=== PATIENT | female | born 1990 | race Caucasian/White ===

== ENCOUNTER 2020-11-22 14:26 | Outpatient (CLI) | payer OTHER ==
[~2020-11-22 14:26] MED LIST: FEROSUL325 MG PO
[2020-12-12] MEDS ORDERED: IBUPROFEN800 MG PO (17:43)
[2020-12-12] MEDS ORDERED: TYLENOL 500 MG500 MG PO (17:43)
[2020-12-12] MEDS ORDERED: BUPRENORPHIN-N1 EACH SL (17:43)
[2020-12-12] MEDS ORDERED: DOCUSATE SODIU100 MG PO (17:43)
== END 2020-11-22 17:45 | disposition home or self-care (01) ==
LOC: GENOP 14:26 → OB 15:00 → GENOP 17:45
PROVIDERS: Obstetrics & Gynecology
DX: O62.9 Abnormality of forces of labor, unspecified (principal); O99.323 Drug use complicating pregnancy, third trimester; F11.20 Opioid dependence, uncomplicated; Z3A.37 37 weeks gestation of pregnancy
CPT/HCPCS: 59025; 80307; 81001; G0378

== ENCOUNTER 2020-12-12 11:56 | Inpatient (IN) | payer OTHER ==
[2020-12-12 13:20] LABS: HEMOGLOBIN 10.4 gm/dl (12.3-15.3); RED BLOOD COUNT 3.83 M/UL (4.00-5.10); WHITE BLOOD COUNT 16.7 K/UL (4.5-11.0)
[2020-12-12 13:39] LABS: BUN/CREATININE RATIO 8 (0-10)
[2020-12-12] MEDS ORDERED: IBUPROFEN800 MG PO (17:43)
[2020-12-12] MEDS ORDERED: TYLENOL 500 MG500 MG PO (17:43)
[2020-12-12] MEDS ORDERED: DOCUSATE SODIU100 MG PO (17:43)
[2020-12-12] MEDS ORDERED: BUPRENORPHIN-N1 EACH SL (17:43)
[2020-12-13 06:42] LABS: HEMOGLOBIN 8.7 gm/dl (12.3-15.3)
== END 2020-12-15 13:26 | disposition home or self-care (01) | DRG 787 ==
LOC: GENOP 11:56 → OB 12:44
PROVIDERS: ADMIT Obstetrics & Gynecology
PROC: 10D00Z1 Extraction of Products of Conception, Low, Open Approach (ICD-10-PCS; principal; 2020-12-12 17:32)
PROC: 3E0234Z Introduction of Serum, Toxoid and Vaccine into Muscle, Percutaneous Approach (ICD-10-PCS; 2020-12-13)
DX: O36.5930 Maternal care for other known or suspected poor fetal growth, third trimester, not applicable or unspecified (principal); O99.324 Drug use complicating childbirth; F11.20 Opioid dependence, uncomplicated; Z3A.37 37 weeks gestation of pregnancy; Z37.0 Single live birth; O34.211 Maternal care for low transverse scar from previous cesarean delivery; N85.8 Other specified noninflammatory disorders of uterus; O99.824 Streptococcus B carrier state complicating childbirth; O99.334 Smoking (tobacco) complicating childbirth; F17.210 Nicotine dependence, cigarettes, uncomplicated; O99.02 Anemia complicating childbirth; D64.9 Anemia, unspecified; O75.89 Other specified complications of labor and delivery; G43.909 Migraine, unspecified, not intractable, without status migrainosus; Z23 Encounter for immunization; O13.4 Gestational [pregnancy-induced] hypertension without significant proteinuria, complicating childbirth; Z20.822 Contact with and (suspected) exposure to COVID-19
CPT/HCPCS: 36415; 80053; 80307; 82570; 82800; 83615; 84156; 84550; 85014; 85018; 85025; 90471; 90715; C9113; J0360; J0690; J1885; J2274; J2370; J2405; J2590; J2765; J3010; J7120; U0002

== ENCOUNTER → 2021-05-31 | Outpatient (CLI) | payer OTHER ==
[~2021-05-31] MED LIST changes: +BUPRENORPHIN-N1 EACH SL; +DOCUSATE SODIU100 MG PO; +IBUPROFEN800 MG PO; +TYLENOL 500 MG500 MG PO
== END ==
LOC: EMI 14:34
DX: G43.909 Migraine, unspecified, not intractable, without status migrainosus (principal)
CPT/HCPCS: 70553; A9577